=== PATIENT | male | born 1985 | race Hispanic/Latino ===

== ENCOUNTER 2018-01-24 13:53 | Emergency (ER) | payer OTHER, BC ==
[2018-01-24 14:05] VITALS: BP 156/73; PULSE 54; RESP 16; TEMP 97.7; O2SAT 100
--- NOTE | 2018-01-24 15:05 | RAD ---
Date of service: 01/24/2018 PROCEDURE: Cervical Spine Radiographs. HISTORY: Pain. COMPARISON: None available. FINDINGS: BONES: There is normal alignment of the cervical vertebral bodies. There is normal cervical lordosis. Vertebral height is normal. Bone mineralization is normal. There is no acute fracture or traumatic anterior listhesis. The craniocervical junction is normal. The atlantoaxial joint normal. DISC SPACES: Normal. SOFT TISSUES: Normal. No prevertebral soft tissue swelling. OTHER FINDINGS: None. IMPRESSION: Normal examination.
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
== END 2018-01-24 15:07 | disposition home or self-care (01) ==
LOC: H.ER 13:53
DX: S13.4XXA Sprain of ligaments of cervical spine, initial encounter (principal); V43.52XA Car driver injured in collision with other type car in traffic accident, initial encounter; Y92.410 Unspecified street and highway as the place of occurrence of the external cause

== ENCOUNTER 2018-06-26 23:06 | Emergency (ER) | payer BC, OTHER ==
[2018-06-26 23:14] VITALS: BP 136/89; PULSE 68; RESP 18; TEMP 98.8; O2SAT 99
[2018-06-27 00:01] LABS: BASO # 0.1 K/uL (0.0-0.2); BASO % 0.8 % (0.0-2.0); EOS # 0.1 K/uL (0.0-0.7); EOS % 0.9 % (0.0-4.0); HEMOGLOBIN 13.6 g/dL (12.0-18.0); LYMPH % 38.6 % (20.0-40.0); MEAN CELL VOLUME 90.7 fl (80.0-94.0); MEAN CORPUSCULAR HEMOGLOBIN 31.2 pg (27.0-31.0); MEAN CORPUSCULAR HGB CONC 34.4 g/dL (33.0-37.0); MEAN PLATELET VOLUME 7.8 fl (7.2-11.7); MONO % 10.1 % (0.0-10.0); NEUT # 5.1 K/uL (1.8-7.0); NEUT % 49.6 % (50.0-75.0); NRBC % 0.1 % (0.0-0.0); RBC 4.35 Mil/uL (4.40-5.90); RED CELL DISTRIBUTION WIDTH 12.5 % (11.5-14.5); WHITE BLOOD COUNT 10.3 K/uL (4.8-10.8)
[2018-06-27 00:08] LABS: ALB/GLOB RATIO 1.5 (1.0-2.1); ALBUMIN 4.4 g/dL (3.5-5.0); ALT/SGPT 30 U/L (21-72); AST/SGOT 32 U/L (17-59); BLOOD UREA NITROGEN 18 mg/dl (9-20); CALCIUM 9.1 mg/dL (8.4-10.2); GFR NON-AFRICAN AMERICAN > 60
--- NOTE | 2018-06-27 00:51 | ED PDOC ---
HPI: Headache Time Seen by Provider: 06/26/18 23:23 Chief Complaint (Nursing): Headache Chief Complaint (Provider): Headache History Per: Patient History/Exam Limitations: no limitations Onset/Duration Of Symptoms: Hrs (x 2) Current Symptoms Are (Timing): Still Present Associated Symptoms: Other (left eyelid droop) Additional Complaint(s): 33 year old male with a history of ulcerative colitis and bipolar disorder presents to the ED for evaluation of left eyelid droop and headache, onset 2 hours prior to arrival. Patient reports symptoms began shortly after he finished taking a shower. He states that he develops frontal headaches, such as this one, about 4 times a week. Concern about eyelid droop, prompted ED visit. Patient rates headache as 2/10. Droop resolved by time of arrival. Denies nausea, vomiting, trouble speaking and trouble walking. PMD: Dr. Danna Grimaldo Past Medical History Reviewed: Historical Data, Nursing Documentation, Vital Signs Vital Signs: Last Vital Signs Temp 98.8 F 06/26/18 23:10 Pulse 68 06/26/18 23:10 Resp 18 06/26/18 23:10 BP 136/89 06/26/18 23:10 Pulse Ox 99 06/26/18 23:10 - Medical History PMH: Bipolar Disorder Denies: Chronic Kidney Disease Other PMH: ulcerative colitis - Surgical History Surgical History: No Surg Hx - Family History Family History: States: Unknown Family Hx - Immunization History Hx Tetanus Toxoid Vaccination: Yes Hx Influenza Vaccination: Yes Hx Pneumococcal Vaccination: No - Home Medications Home Medications: Ambulatory Orders Medication Instructions Recorded Adalimumab [Humira Pen] 40 mg SC 07/22/16 Divalproex [Depakote ER] 1,000 mg PO HS 07/22/16 Lamotrigine [Lamictal] 200 mg PO BIDHS 07/22/16 Mesalamine [Lialda] 2 mg PO BID 07/22/16 Sertraline [Zoloft] 75 mg PO HS 07/22/16 Ciprofloxacin HCl [Cipro] 500 mg PO Q12H 5 Days tablet 07/24/16 Metronidazole [Flagyl] 500 mg PO Q8H 5 Days tablet 07/24/16 Cyclobenzaprine [Cyclobenzaprine 10 mg PO Q8 PRN #10 tab 01/24/18 HCl] Naproxen [Naprosyn] 500 mg PO BID PRN #10 tab 01/24/18 - Allergies Allergies/Adverse Reactions: Allergies Allergy/AdvReac Type Severity Reaction Status Date / Time cefaclor [From [facility]] Allergy RASH Verified 01/24/18 14:01 Review of Systems ROS Statement: Except As Marked, All Systems Reviewed And Found Negative Neurological: Positive for: Headache Physical Exam - Reviewed Nursing Documentation Reviewed: Yes Vital Signs Reviewed: Yes - Physical Exam Appears: Positive for: Non-toxic, No Acute Distress Head Exam: Positive for: ATRAUMATIC, NORMAL INSPECTION, NORMOCEPHALIC Skin: Positive for: Normal Color, Warm, Dry Eye Exam: Positive for: EOMI, Normal appearance, PERRL Neck: Positive for: Normal, Painless ROM, Supple Cardiovascular/Chest: Positive for: Regular Rate, Rhythm. Negative for: Murmur Respiratory: Positive for: Normal Breath Sounds. Negative for: Respiratory Distress Gastrointestinal/Abdominal: Positive for: Normal Exam, Soft. Negative for: Tenderness Back: Positive for: Normal Inspection. Negative for: L CVA Tenderness, R CVA Tenderness Extremity: Positive for: Normal ROM (x 4). Negative for: Deformity, Swelling Neurological/Psych: Positive for: Awake, Alert, Normal Tone, Symmetric/Intact Strength (5/5 strength in all extremitites), Oriented (x 3), Gait (steady), overnight babysitter II-XII (intact), Other (sensations intact). Negative for: Motor/Sensory Deficits, Facial Droop - Laboratory Results Result Diagrams: 06/26/18 23:49 06/26/18 23:49 Lab Results: Total Bilirubin 0.3 mg/dl (0.2-1.3) 06/26/18 23:49 AST 32 U/L (17-59) 06/26/18 23:49 ALT 30 U/L (21-72) 06/26/18 23:49 Alkaline Phosphatase 88 U/L (38-126) 06/26/18 23:49 Total Protein 7.3 G/DL (6.3-8.2) 06/26/18 23:49 Albumin 4.4 g/dL (3.5-5.0) 06/26/18 23:49 Globulin 3.0 gm/dL (2.2-3.9) 06/26/18 23:49 Albumin/Globulin Ratio 1.5 (1.0-2.1) 06/26/18 23:49 - ECG O2 Sat by Pulse Oximetry: 99 (RA) Pulse Ox Interpretation: Normal Medical Decision Making Medical Decision Makin:36 Impression: 33 year old male with headache and left eyelid droop Initial Plan: --Head CT --CBC --CMP 00:[address] TECHNIQUE: Axial and reformatted sagittal and coronal images of the brain obtained without IV contrast administration. Normal size of the ventricles and extra-axial spaces for the patient's age. Normal white matter tracts of the supratentorial brain. Normal basal ganglia and thalami. Normal brainstem. Normal cerebellum. There is no demonstrated extra-axial, intraparenchymal, or intraventricular hemorrhage. There are no findings of an acute ischemic infarction. Normal calvarium. There is no demonstrated fracture. Normal soft tissue structures. Mild chronic mucosal inflammatory changes of the right ethmoid air cells. Normal remaining visualized paranasal sinuses. IMPRESSION: Normal unenhanced CT scan of the brain. Right ethmoid chronic sinusitis. 00:45 Patient reports improvement of symptoms and is stable for discharge. Advised to follow up with referred neurologist. Diagnosis is headache. Scribe Attestation: Documented by Sonia Garcia, acting as a scribe Cain Ramirez MD Provider Scribe Attestation: All medical record entries made by the Scribe were at my direction and personally dictated by me. I have reviewed the chart and agree that the record accurately reflects my personal performance of the history, physical exam, medical decision making, and the department course for this patient. I have also personally directed, reviewed, and agree with the discharge instructions and disposition Disposition - Clinical Impression Clinical Impression: Headache - Patient ED Disposition Is Patient to be Admitted: No - Disposition Referrals: Placido Waldrop MD [Staff Provider] - Disposition: Routine/Home Disposition Time: 00:45 Condition: STABLE Instructions: Cluster Headache, Migraine Headache (DC) Forms: [facility] (Macedonian)
--- NOTE | 2018-06-27 08:26 | CT ---
Date of service: 06/26/2018 PROCEDURE: CT HEAD WITHOUT CONTRAST. HISTORY: headache COMPARISON: None available. TECHNIQUE: Axial computed tomography images were obtained through the head/brain without intravenous contrast. Radiation dose: Total exam DLP = 854.81 mGy-cm. This CT exam was performed using one or more of the following dose reduction techniques: Automated exposure control, adjustment of the mA and/or kV according to patient size, and/or use of iterative reconstruction technique. FINDINGS: HEMORRHAGE: No intracranial hemorrhage. BRAIN: No mass effect or edema. No atrophy or chronic microvascular ischemic changes. VENTRICLES: Unremarkable. No hydrocephalus. CALVARIUM: Unremarkable. PARANASAL SINUSES: Minimal ethmoidal air cell mucosal thickening/inflammatory changes. MASTOID AIR CELLS: Unremarkable as visualized. No inflammatory changes. OTHER FINDINGS: Regarding each external ear, there are bilateral coarse dystrophic appearing calcifications within each pinna IMPRESSION: No intra cerebral pathology grossly apparent. No extra-axial blood collections Minimal ethmoidal sinus inflammatory changes. Bilateral ear/pinna dystrophic appearing calcifications. This finding was not mentioned in the initial preliminary [place] rad report. The other findings were mentioned.
== END 2018-06-27 00:56 | disposition home or self-care (01) ==
LOC: H.ER 23:06
DX: R51 Headache (principal); Z86.59 Personal history of other mental and behavioral disorders; H02.402 Unspecified ptosis of left eyelid; Z88.1 Allergy status to other antibiotic agents